=== PATIENT | male | born 1935 | race Hispanic/Latino ===

== ENCOUNTER → 2017-06-22 | Outpatient (CLI) | payer MEDICARE ==
[~2017-06-22] MED LIST: ACET-2893 PO; AMIL5TAB8 PO; AMLO2.5T PO; ATOR40TA71 PO; CEPH250 PO; CITA10TA7 PO; DICL2100G TP; DUTA.5 PO; HYDR12.54 PO; LISI40TA4 PO; LORA10TA7 PO; REFRESH EYE DROPS; TAMS0.4C32 PO; UMEC1DIS IH
== END ==
LOC: OIH 09:12
PROVIDERS: ATTEND Family Medicine Adult Medicine
DX: M17.0 Bilateral primary osteoarthritis of knee (principal)
CPT/HCPCS: 73560